=== PATIENT | female | born 2000 | race Two or more races ===

== ENCOUNTER 2022-09-11 17:40 | Emergency (ER) | payer OTHER ==
[~2022-09-11] VITALS: Ht 160 cm; Wt 54.4 kg
[2022-09-11] MEDS ORDERED: NAPROXEN375 MG PO (19:04)
== END 2022-09-11 19:57 | disposition home or self-care (01) ==
LOC: EMR PED 17:40
DX: S59.901A Unspecified injury of right elbow, initial encounter (principal); W01.0XXA Fall on same level from slipping, tripping and stumbling without subsequent striking against object, initial encounter; Y93.89 Activity, other specified; Y92.9 Unspecified place or not applicable; S39.92XA Unspecified injury of lower back, initial encounter